=== PATIENT | male | born 1980 | race Caucasian/White ===

== ENCOUNTER 2019-02-07 11:24 | Emergency (ER) | payer BC ==
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
[2019-02-07 13:09] LABS: Hematocrit 43 % (36-46); Hemoglobin 14.9 g/dL (14.0-18.0); Mean Corpuscular HGB Conc 35 g/dL (31-36); Mean Corpuscular Hemoglobin 31 pg (27-31); Mean Corpuscular Volume 88 fL (80-94); Mean Platelet Volume 9.7 fL (7.4-10.4); Platelet Count 155 10^3/uL (150-450); Red Blood Count 4.88 10^6 /uL (4.18-5.48); Red Cell Distribution Width 13 % (10.5-15); White Blood Count 4.1 10^3/uL (3.5-10.8)
[2019-02-07 13:20] LABS: Albumin 4.5 g/dL (3.2-5.2); Albumin/Globulin Ratio 2.1 (1-3); BUN/Creatinine Ratio 9.9 (8-20); Calcium 9.5 mg/dL (8.6-10.3); EGFR African American 113.4 (>60); EGFR Non-African American 93.7 (>60); Globulin 2.1 g/dL (2-4); Potassium 3.8 mmol/L (3.5-5.0); Total Bilirubin 0.8 mg/dL (0.2-1.0); Total Protein 6.6 g/dL (6.4-8.9)
[2019-02-07] MEDS ORDERED: Iohexol 300* (CONTRAST) 10 ML SDV IV ONE (13:32)
[2019-02-07 15:09] VITALS: BP 139/75
== END 2019-02-07 15:08 | disposition home or self-care (01) ==
LOC: ED 11:24
DX: S73.102A Unspecified sprain of left hip, initial encounter (principal); S39.011A Strain of muscle, fascia and tendon of abdomen, initial encounter; V43.52XA Car driver injured in collision with other type car in traffic accident, initial encounter; Y92.410 Unspecified street and highway as the place of occurrence of the external cause
CPT/HCPCS: 36415; 74177; 80053; 85027; 86850; 86900; 86901; 99283; Q9967